=== PATIENT | female | born 2000 | race Caucasian/White ===

== ENCOUNTER 2023-09-22 15:38 | Emergency (ER) | payer OTHER ==
[2023-09-22 15:48] VITALS: BP 127/62; PULSE 106; RESP 18; TEMP 98; BMI 21.2
[2023-09-22] MEDS: DEXAMETHASONE SOD PHOSPHATE 10 MG/1 ML VIAL PO ONE (16:42)
[2023-09-22] MEDS ORDERED: DEXAMETHASONE SOD PHOSPHATE 10 MG/1 ML VIAL ONE (16:43)
== END 2023-09-22 16:49 | disposition home or self-care (01) ==
LOC: JERFT 15:38
DX: H92.02 Otalgia, left ear (principal); H66.92 Otitis media, unspecified, left ear; B34.9 Viral infection, unspecified
CPT/HCPCS: 99283-25; J1100